=== PATIENT | male | born 1965 ===

== ENCOUNTER 2017-09-23 10:40 | Emergency (ER) | payer OTHER ==
--- NOTE | 2017-09-23 11:51 | UC ---
Respiratory Complaint HPI - HPI Summary HPI Summary: c/o cough and malaise for the past 5 days, feeling he was on his way to recovery but started with sore throat, worsening dry cough and some SOB - History of Current Complaint Chief Complaint: UCRespiratory Stated Complaint: CONGESTION COUGH SORE THROAT Time Seen by Provider: 09/23/17 11:36 Hx Obtained From: Patient Onset/Duration: Gradual Onset, Lasting Days Timing: Constant Severity Initially: Mild Severity Currently: Moderate - Allergies/Home Medications Allergies/Adverse Reactions: Allergies Allergy/AdvReac Type Severity Reaction Status Date / Time No Known Allergies Allergy Verified 09/23/17 11:10 Home Medications: Home Medications Chlorthalidone TAB* [Hygroton TAB*] 25 mg PO DAILY 09/23/17 [History Confirmed 09/23/17] PMH/Surg Hx/FS Hx/Imm Hx Previously Healthy: Yes Cardiovascular History: Hypertension Other History Of: Negative For: Anticoagulant Therapy - Surgical History Surgical History: Yes Surgery Procedure, Year, and Place: Right ring finger - Family History Known Family History: Positive: Hypertension - Social History Alcohol Use: Weekly Alcohol Amount: weekends Substance Use Type: None Smoking Status (MU): Light Every Day Tobacco Smoker Type: Cigarettes Amount Used/How Often: 1/2 ppd Length of Time of Smoking/Using Tobacco: 25 years Have You Smoked in the Last Year: Yes Review of Systems ENT: Sore Throat, Nasal Discharge Respiratory: Shortness Of Breath, Cough All Other Systems Reviewed And Are Negative: Yes Physical Exam Triage Information Reviewed: Yes Appearance: Well-Appearing, No Pain Distress Vital Signs: Initial Vital Signs Temp 98 F 09/23/17 11:11 Pulse 110 09/23/17 11:11 Resp 22 09/23/17 11:11 BP 153/90 09/23/17 11:11 Pulse Ox 98 09/23/17 11:11 Vital Signs Reviewed: Yes ENT: Positive: Pharynx normal, TMs normal Neck exam: Normal Respiratory: Positive: Lungs clear Cardiovascular Exam: Normal UC Diagnostic Evaluation - Laboratory O2 Sat by Pulse Oximetry: 98 Respiratory Course/Dx - Differential Dx/Diagnosis Provider Diagnoses: acute bronchits Discharge - Discharge Plan Condition: Stable Disposition: HOME Patient Education Materials: Acute Bronchitis (ED)
== END 2017-09-23 12:12 | disposition home or self-care (01) ==
LOC: UCEAST 10:40
DX: J20.9 Acute bronchitis, unspecified (principal); I10 Essential (primary) hypertension; F17.210 Nicotine dependence, cigarettes, uncomplicated
CPT/HCPCS: 99212; G0463